=== PATIENT | male | born 1980 | race Caucasian/White ===

== ENCOUNTER 2018-07-27 11:59 | Inpatient (IN) | payer MEDICAID, OTHER ==
[2018-07-27 13:17] LABS: VENOUS BLOOD GAS BASE EXCESS 4.9 mmol/L (0.0-2.0); VENOUS BLOOD GAS PCO2 53 mmHg (40-60); VENOUS BLOOD GAS PO2 25 mm/Hg (30-55); VENOUS BLOOD PH 7.38 (7.32-7.43)
--- NOTE | 2018-07-27 13:21 | ED PDOC ---
HPI: Fever Time Seen by Provider: 07/27/18 12:52 Additional Comments: 38 years old male with history of diabetes presents to ER for evaluation of fever associated with swelling and redness to left lower extremity onset 2 days. Patient denies any trauma, chest pain or shortness of breath. PMD: Julianna Gutiérrez Past Medical History Reviewed: Historical Data, Nursing Documentation, Vital Signs Vital Signs: Last Vital Signs Temp 102.2 F H 07/27/18 12:37 Pulse 123 H 07/27/18 12:37 Resp 20 07/27/18 12:37 BP 127/73 07/27/18 12:37 Pulse Ox 96 07/27/18 12:37 - Medical History PMH: Diabetes, Hyperlipidemia - Surgical History Surgical History: No Surg Hx - Family History Family History: States: Unknown Family Hx - Social History Current smoker - smoking cessation education provided: Yes Alcohol: Social Drugs: Denies - Home Medications Home Medications: Ambulatory Orders Medication Instructions Recorded Docusate [Colace] 100 mg PO BID #30 cap 07/28/16 - Allergies Allergies/Adverse Reactions: Allergies Allergy/AdvReac Type Severity Reaction Status Date / Time No Known Allergies Allergy Verified 07/27/18 12:35 Review of Systems ROS Statement: Except As Marked, All Systems Reviewed And Found Negative Constitutional: Positive for: Fever Cardiovascular: Negative for: Chest Pain Respiratory: Negative for: Shortness of Breath Musculoskeletal: Positive for: Other (Swelling of left lower extremity) Physical Exam - Reviewed Nursing Documentation Reviewed: Yes Vital Signs Reviewed: Yes - Physical Exam Appears: Positive for: Non-toxic, No Acute Distress Head Exam: Positive for: ATRAUMATIC, NORMOCEPHALIC Cardiovascular/Chest: Positive for: Regular Rate, Rhythm. Negative for: Murmur Respiratory: Positive for: Normal Breath Sounds. Negative for: Wheezing Gastrointestinal/Abdominal: Positive for: Normal Exam, Soft. Negative for: Tenderness Extremity: Positive for: Normal ROM, Swelling (left lower warmth and erythema from ankle to knee laterally) Neurologic/Psych: Positive for: Alert, Oriented (x3) - ECG O2 Sat by Pulse Oximetry: 96 (RA) Pulse Ox Interpretation: Normal Medical Decision Making Medical Decision Making: Time: 1256 Initial Plan: --VBG --CMP --CBC --Tylenol 325 mg PO --Vancomycin Inj 1 gm IVPB --Blood culture --Left duplex lower extremity vein US Scribe Attestation: Documented by Lesia Nolan, acting as a scribe for Olievr Vickers MD. Provider Scribe Attestation: All medical record entries made by the Scribe were at my direction and personally dictated by me. I have reviewed the chart and agree that the record accurately reflects my personal performance of the history, physical exam, medical decision making, and the department course for this patient. I have also personally directed, reviewed, and agree with the discharge instructions and disposition. Disposition - Clinical Impression Clinical Impression: Cellulitis, Sepsis - Patient ED Disposition Is Patient to be Admitted: Yes - Disposition Disposition Time: 13:38 Condition: FAIR Forms: [employer] (Georgian) - Pt Status Changed To: Hospital Disposition Of: Inpatient - Admit Certification Admit to Inpatient:: After my assessment, the patient will require hospitalization for at least two midnights. This is because of the severity of symptoms shown, intensity of services needed, and/or the medical risk in this patient being treated as an outpatient. - POA Present On Arrival: None
[2018-07-27] MEDS ORDERED: Vancomycin 1 g Inj ONE (13:22)
[2018-07-27] MEDS ORDERED: Piperacillin/Tazobact 3.375 GM in Sodium Chloride 0.9% 100 ML IVPB STA (13:38)
--- NOTE | 2018-07-27 13:55 | US ---
Date of service: 07/27/2018 HISTORY: rednes and swelling left calf. PRIORS: None. FINDINGS: 2-D, color and duplex Doppler analysis of the lower extremity venous circulation using routine protocol from the femoral veins through the popliteal veins. Venous compressibility: Normal. Flow and augmentation patterns: Normal. Visualized veins upper third of calf: Normal. Yung cyst: None. IMPRESSION: No sonographic or Doppler evidence for DVT in left lower extremity.
[2018-07-27 14:02] LABS: BASO % 0.1 % (0.0-2.0); EOS % 0.2 % (0.0-4.0); HEMOGLOBIN 15.5 g/dL (12.0-18.0); LYMPH # 1.3 K/uL (1.0-4.3); LYMPH % 8.3 % (20.0-40.0); MEAN CELL VOLUME 89.3 fl (80.0-94.0); MEAN CORPUSCULAR HEMOGLOBIN 29.9 pg (27.0-31.0); MEAN CORPUSCULAR HGB CONC 33.5 g/dL (33.0-37.0); MEAN PLATELET VOLUME 10.8 fl (7.2-11.7); MONO # 0.8 K/uL (0.0-0.8); NEUT % 86.4 % (50.0-75.0); PLATELET COUNT 195 K/uL (130-400); RBC 5.18 Mil/uL (4.40-5.90); RED CELL DISTRIBUTION WIDTH 14.1 % (11.5-14.5); WHITE BLOOD COUNT 16.2 K/uL (4.8-10.8)
[2018-07-27 14:08] LABS: ALB/GLOB RATIO 1.1 (1.0-2.1); ALBUMIN 4.4 g/dL (3.5-5.0); ALT/SGPT 74 U/L (21-72); AST/SGOT 36 U/L (17-59); BLOOD UREA NITROGEN 10 mg/dl (9-20); CALCIUM 9.4 mg/dL (8.4-10.2); GFR NON-AFRICAN AMERICAN > 60
[2018-07-27 14:29] LABS: BANDS 1 % (0-2); LYMPHOCYTE 7 % (20-50); MONOCYTE 2 % (0-10); NEUTROPHIL 90 % (42-75); TOTAL CELLS COUNTED 100
[2018-07-27 14:30] LABS: PLATELET ESTIMATE NORMAL (NORMAL)
[2018-07-27 14:36] LABS: URINE BILIRUBIN NEGATIVE (NEGATIVE); URINE BLOOD NEGATIVE (NEGATIVE); URINE CLARITY SLIGHTY-CLOUDY (Clear); URINE COLOR YELLOW (YELLOW); URINE GLUCOSE (UA) NEG (Normal); URINE LEUKOCYTE ESTERASE NEG Leu/uL (Negative); URINE PROTEIN NEGATIVE (NEGATIVE); URINE UROBILINOGEN 0.2-1.0 mg/dL (0.2-1.0)
[2018-07-28] MEDS: Piperacillin/Tazobact 3.375 GM in Sodium Chloride 0.9% 100 ML IVPB SCH ×3 (00:24→16:30)
[2018-07-28] MEDS: Enoxaparin 40 mg Syringe SC SCH (09:27)
--- NOTE | 2018-07-28 09:34 | RAD ---
Date of service: 07/28/2018 HISTORY: sepsis COMPARISON: Left ribs with chest 07/03/2011. FINDINGS: LUNGS: No active pulmonary disease. PLEURA: No significant pleural effusion identified, no pneumothorax apparent. CARDIOVASCULAR: Normal. OSSEOUS STRUCTURES: No significant abnormalities. VISUALIZED UPPER ABDOMEN: Normal. OTHER FINDINGS: None. IMPRESSION: No interval acute cardiopulmonary disease appreciated.
--- NOTE | 2018-07-28 13:11 | CARD ---
APPROVED REPORT Date of service: 07/28/2018 EKG Measurement Heart [id number] <Conclusion> Normal sinus rhythm Inferior infarct, age undetermined Abnormal ECG
--- NOTE | 2018-07-28 18:04 | HP ---
CHIEF COMPLAINT: Redness of left lower extremity and fever. HISTORY OF PRESENT ILLNESS: This is a 38-year-old male known case of diabetes, elevated cholesterol, morbid obesity with fever and left lower extremity redness and swelling and pain. The patient was brought to emergency room and was admitted for further management. REVIEW OF SYSTEMS: Positive for generalized malaise, weakness, fatigue, tired, fever and left lower extremity pain. Review of systems otherwise is negative for headache, dizziness, syncope, loss of consciousness, chest pain, shortness of breath, nausea, vomiting, diarrhea, constipation. Review of systems of all other organ system is unremarkable. PAST MEDICAL HISTORY: Significant for diabetes, elevated cholesterol. PAST SURGICAL HISTORY: Unremarkable. PERSONAL HISTORY: The patient is currently a smoker, but no alcohol or substance abuse. MEDICATIONS: The patient is on Colace, glimepiride along with other medications, which are reviewed and reconciled. ALLERGIES: THE PATIENT IS NOT ALLERGIC TO ANY MEDICATIONS. FAMILY HISTORY: Noncontributory. PHYSICAL EXAMINATION: GENERAL: Well-built, well-nourished, grossly overweight, morbidly obese, 38-year-old male, in no acute distress. VITAL SIGNS: Temperature 99, pulse 88, respirations 20, blood pressure 106/90, saturation 92%. HEENT: Pupils reacting to light. No JVD. No thyromegaly. No lymphadenopathy. No nystagmus. Normocephalic. Atraumatic skull. HEART: S1 and S2. Normal and regular. No significant murmur, gallop or rub is heard. LUNG: Shows good bilateral air exchange. No rales or rhonchi. ABDOMEN: Soft, nontender. No organomegaly. No fluid. Bowel sounds are plus and normal. EXTREMITIES: No edema. No calf swelling. No tenderness. No acute ischemia on right side, but left lower extremity down to ankle. The patient has swelling, redness, and tenderness. No sign of distal neurovascular compromise. The patient has good peripheral pulse and good capillary refill. No calf swelling or tenderness. 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 DIAGNOSTIC DATA: Available diagnostic data reviewed. WBC 16.2, hemoglobin 15.5, hematocrit 46.2, platelets 195, lactic acid level of 1.9. Sodium 139, potassium 4.2, chloride 100, bicarb 32, BUN 10, creatinine 0.9. SMA-12 is unremarkable. Accu-Cheks are 137, 160, 114. Urinalysis is negative. Left lower extremity Doppler study is negative for blood clots. ADMITTING IMPRESSION: Septicemia, left lower extremity cellulitis, diabetes type 2 with hyperglycemia, elevated cholesterol, morbid obesity with body mass index of 39.1. PLAN: As ordered. Case and plan discussed with the patient and the patient's family at bedside at length. Jose Thomas MD
--- NOTE | 2018-07-28 22:20 | CON ---
DATE: 07/28/2018 ENDOCRINOLOGY CONSULTATION LOCATION: Room 426, ICU. HISTORY OF PRESENT ILLNESS: This is a 38-year-old male with known history of type 2 diabetes and hypertension, presenting here with left lower extremity cellulitis and is now being referred for diabetic evaluation and management. PAST MEDICAL HISTORY: As mentioned above, history of type 2 diabetes, currently on a combination of oral hypoglycemic therapy with Amaryl given as 1 mg daily and metformin as 1 g b.i.d. History of hypertension and dyslipidemia. FAMILY HISTORY: Positive for diabetes and hypertension. SOCIAL HISTORY: The patient has a supportive family. Admits to smoking half a pack a day for some years now. No other known substance use. REVIEW OF SYSTEMS: Admits to generalized body weakness with episodic bouts of dizziness and lightheadedness, worse on the day of admission. Also admits to bifrontal headaches and visual blurring with suboptimal energy level. No chest pains, palpitations, or PNDs. Oral intake is variable with nausea and dyspepsia and vague upper abdominal pains. Also admits to marked polyuria, nocturia, and polydipsia. PHYSICAL EXAMINATION: GENERAL: This is an average-built male, in no apparent distress. VITAL SIGNS: Blood pressure of 140/80, pulse of 70 beats per minute and regular, temperature 98, respirations 20. Height is 5 feet 11 inches. Weight is 280 pounds. HEENT: Head is normocephalic. Eyes, anicteric with pink conjunctivae. Funduscopy not possible at this time. Ears, nose, and throat otherwise normal. NECK: Supple. Thyroid gland is normal in size. No carotid bruits or any cervical adenopathy. CARDIOPULMONARY: Some adynamic precordium. S1 and S2 are rapid and regular. LUNGS: Clear to auscultation. ABDOMEN: Flat, soft with positive bowel sounds. EXTREMITIES: Left lower extremity shows flaccid erythema and edema in the left lower extremity. Pulses are +2 bilaterally. LABORATORY DATA: Chemistry: BUN of 10, sodium 139, potassium 4.2, chloride of 100, CO2 of 32, glucose 114 and creatinine 0.9. WBC is 16.2 with a hemoglobin of 15, hematocrit of 46, MCV 89, platelets 15. ASSESSMENT: This is a 38-year-old male with uncontrolled and decompensated type 2 diabetes, presenting here with acute cellulitis in the lower extremity with concomitant fever and leukocytosis and is now being referred for diabetic evaluation and management. PLAN OF MANAGEMENT: We will continue the current oral hypoglycemic therapy given as 1000 mg b.i.d. with glipizide given as 5 mg b.i.d. before meals as ordered. We will titrate incrementally as indicated to optimize metabolic control. We will also continue the same dose dual oral hypoglycemic therapy as given with metformin given as 1 g b.i.d. and glipizide as 5 mg b.i.d. as ordered. We will obtain serial chemistries and continue the vigorous IV hydration as given. We will obtain serial chemistries and supplement accordingly as needed. We will follow. Sandrine Jean MD
[2018-07-29] MEDS: Piperacillin/Tazobact 3.375 GM in Sodium Chloride 0.9% 100 ML IVPB SCH ×3 (00:25→17:46)
[2018-07-29] MEDS: Enoxaparin 40 mg Syringe SC SCH (09:13)
--- NOTE | 2018-07-29 13:38 | CP.PCM.PN ---
Subjective - Date & Time of Evaluation Date of Evaluation: 07/29/18 Time of Evaluation: 07:20 - Subjective Subjective: Patient seen and examined with Dr. Thomas this AM. Report leg pain has improved. Denies any fever, chills, nausea, vomiting, chest pain or dyspnea. Objective - Vital Signs/Intake and Output Vital Signs (last 24 hours): Temp Pulse Resp BP Pulse Ox 98 F 93 H 18 126/94 H 95 07/29/18 12:50 07/29/18 12:50 07/29/18 12:50 07/29/18 12:50 07/29/18 12:50 - Medications Medications: Current Medications Atorvastatin Calcium (Lipitor) 20 mg PO DAILY [facility] Last Admin: 07/29/18 09:13 Dose: 20 mg Enoxaparin Sodium (Lovenox) 40 mg SC DAILY [facility]; Protocol Last Admin: 07/29/18 09:13 Dose: 40 mg Glipizide (Glucotrol) 5 mg PO BID [facility] Last Admin: 07/29/18 09:13 Dose: 5 mg Piperacillin Sod/Tazobactam (Sod 3.375 gm/ Sodium Chloride) 100 mls @ 100 mls/hr IVPB Q8 [facility]; Protocol Last Admin: 07/29/18 08:20 Dose: 100 mls/hr Vancomycin HCl 1 gm/ Sodium (Chloride) 250 mls @ 166.667 mls/hr IVPB Q12@0500,1700 [facility]; Protocol Last Admin: 07/29/18 05:20 Dose: 166.667 mls/hr Metformin HCl (Glucophage) 1,000 mg PO BIDWM [facility] Last Admin: 07/29/18 09:14 Dose: 1,000 mg - Labs Labs: 07/27/18 13:20 07/27/18 13:20 - Constitutional Appears: Non-toxic, No Acute Distress - Head Exam Head Exam: ATRAUMATIC, NORMAL INSPECTION - Eye Exam Eye Exam: Normal appearance - ENT Exam ENT Exam: Mucous Membranes Moist - Neck Exam Neck Exam: Full ROM, Normal Inspection - Respiratory Exam Respiratory Exam: Clear to Ausculation Bilateral, NORMAL BREATHING PATTERN. absent: Rhonchi, Wheezes - Cardiovascular Exam Cardiovascular Exam: REGULAR RHYTHM, +S1, +S2 - GI/Abdominal Exam GI & Abdominal Exam: Soft, Normal Bowel Sounds. absent: Tenderness - Extremities Exam Extremities Exam: absent: Calf Tenderness Additional comments: Mild erythema and warmth on left lower leg (improved) - Neurological Exam Neurological Exam: Alert, Awake, Oriented x3 - Psychiatric Exam Psychiatric exam: Normal Affect, Normal Mood - Skin Skin Exam: Normal Color Assessment and Plan - Assessment and Plan (Free Text) Assessment: 38 yo male pmhx DMII, HLD admited for left lower leg cellulitis and possible sepsis. Plan: c/w IV Vancomycin and Zosyn c/w home medications blood cx: no growth after 24 hours Urine cx: no growth. f/u MRI. If MRI is unremarkable, anticipate discharge this afternoon. Patient seen,examined and plan d/w Dr. Martha Woods, pgy-2
[2018-07-29] MEDS ORDERED: Gadodiamide 287 MG/ML VIAL (15ML) IV ONE (14:52)
--- NOTE | 2018-07-29 16:00 | PN ---
DATE: 07/29/2018 ENDO FOLLOWUP NOTE LOCATION: In ICU room 426. SUBJECTIVE: This is a 38-year-old male with recent uncontrolled type 2 diabetes, presenting here with lower extremity cellulitis and unsuccessful with IV antibiotic management and is also being followed closely for metabolic management. His glycemic levels are fluctuating, but improved and the glucose levels have ranged from 91 to 94 mg/dL. This was 144 early this morning as noted. His hemoglobin A1c is 6.9%. ASSESSMENT AND PLAN: So at this time, we will continue the same dual oral hypoglycemic therapy as given with glipizide given as 5 mg b.i.d. and metformin given as 1 g b.i.d. with meals as ordered. We will titrate incrementally as indicated to optimize metabolic control. We will follow and advise accordingly. Sandrine Jean MD
--- NOTE | 2018-07-29 16:31 | MRI ---
MRI left tibia and fibula History: Cellulitis. Evaluate for osteomyelitis. Comparison: None available. TECHNIQUE: Multi-echo multiplanar sequences were performed through the left tibia and fibula without and with the use of intravenous contrast. Findings: Prominent reticulation and edema within anterior and medial subcutaneous soft tissues at the level of the left tibia and fibula consistent with cellulitis. This is seen throughout the entire extent of the left tibia and fibula. The edema extends and abuts the anteromedial cortex of the tibia throughout its course. No gross signal abnormality noted within the tibia to suggest for an acute osteomyelitis. Correlation with plain x-ray would be helpful to exclude possible and or subtle periosteal changes. Clinical correlation. Minimal reactive edema seen within medial and lateral heads of the gastrocnemius muscles which may represent myositis. Remainder of the visualized musculature appears preserved. Limited evaluation of the right tibia and fibula demonstrates prominent cortical thickening and/or productive change at the level of the mid to distal medullary cavity of the right tibia which may represent a chronic deformity given the lack of reactive edema. Correlation plain x-ray and or clinical correlation maybe helpful for further evaluation if clinically indicated. Impression: 1. Prominent reticulation and edema within anterior and medial subcutaneous soft tissues at the level of the left tibia and fibula consistent with cellulitis. This is seen throughout the entire extent of the left tibia and fibula. The edema extends and abuts the anteromedial cortex of the tibia throughout its course. No gross signal abnormality noted within the tibia to suggest for an acute osteomyelitis. Correlation with plain x-ray would be helpful to exclude possible and or subtle periosteal changes. Clinical correlation. 2. Minimal reactive edema seen within medial and lateral heads of the gastrocnemius muscles which may represent myositis. Remainder of the visualized musculature appears preserved. 3. Limited evaluation of the right tibia and fibula demonstrates prominent cortical thickening and/or productive change at the level of the mid to distal medullary cavity of the right tibia which may represent a chronic deformity given the lack of reactive edema. Correlation plain x-ray and or clinical correlation maybe helpful for further evaluation if clinically indicated.
[2018-07-30] MEDS: Piperacillin/Tazobact 3.375 GM in Sodium Chloride 0.9% 100 ML IVPB SCH ×2 (01:43→08:40)
[2018-07-30 02:19] VITALS: O2SAT 97
[2018-07-30 08:23] LABS: HEMOGLOBIN 15.2 g/dL (12.0-18.0); MEAN CELL VOLUME 88.8 fl (80.0-94.0); MEAN CORPUSCULAR HEMOGLOBIN 30.2 pg (27.0-31.0); RBC 5.03 Mil/uL (4.40-5.90); RED CELL DISTRIBUTION WIDTH 13.8 % (11.5-14.5); WHITE BLOOD COUNT 9.7 K/uL (4.8-10.8)
[2018-07-30 08:38] VITALS: BP 127/78; RESP 20; TEMP 98.2
[2018-07-30] MEDS: Enoxaparin 40 mg Syringe SC SCH (08:40)
[2018-07-30 09:26] LABS: BLOOD UREA NITROGEN 14 mg/dl (9-20)
[2018-07-30 09:27] LABS: CALCIUM 9.2 mg/dL (8.4-10.2); GFR NON-AFRICAN AMERICAN > 60
--- NOTE | 2018-07-30 09:52 | CP.PCM.DIS ---
Provider - Provider Date of Admission: 07/27/18 13:36 Attending physician: Jose Thomas MD Time Spent in preparation of Discharge (in minutes): 25 Diagnosis - Discharge Diagnosis (1) Cellulitis Status: Acute (2) Sepsis Status: Resolved Hospital Course - Lab Results Lab Results: Micro Results 07/27/18 11:13 Naris MRSA Culture (Admit) - Final MRSA NOT DETECTED 07/27/18 14:00 Blood Blood Culture - Preliminary NO GROWTH AFTER 48 HOURS 07/27/18 13:00 Blood Blood Culture - Preliminary NO GROWTH AFTER 48 HOURS 07/27/18 14:10 Urine Urine Culture - Final No Growth (<1,000 CFU/ML) Most Recent Lab Values WBC 9.7 K/uL (4.8-10.8) 07/30/18 08:15 RBC 5.03 Mil/uL (4.40-5.90) 07/30/18 08:15 Hgb 15.2 g/dL (12.0-18.0) 07/30/18 08:15 Hct 44.7 % (35.0-51.0) 07/30/18 08:15 MCV 88.8 fl (80.0-94.0) 07/30/18 08:15 MCH 30.2 pg (27.0-31.0) 07/30/18 08:15 MCHC 34.0 g/dL (33.0-37.0) 07/30/18 08:15 RDW 13.8 % (11.5-14.5) 07/30/18 08:15 Plt Count 208 K/uL (130-400) 07/30/18 08:15 MPV 10.8 fl (7.2-11.7) 07/27/18 13:20 Neut % (Auto) 86.4 % (50.0-75.0) H 07/27/18 13:20 Lymph % (Auto) 8.3 % (20.0-40.0) L 07/27/18 13:20 [place] % (Auto) 5.0 % (0.0-10.0) 07/27/18 13:20 Eos % (Auto) 0.2 % (0.0-4.0) 07/27/18 13:20 Baso % (Auto) 0.1 % (0.0-2.0) 07/27/18 13:20 Neut # (Auto) 14.0 K/uL (1.8-7.0) H 07/27/18 13:20 Lymph # (Auto) 1.3 K/uL (1.0-4.3) 07/27/18 13:20 [place] # (Auto) 0.8 K/uL (0.0-0.8) 07/27/18 13:20 Eos # (Auto) 0.0 K/uL (0.0-0.7) 07/27/18 13:20 Baso # (Auto) 0.0 K/uL (0.0-0.2) 07/27/18 13:20 Neutrophils % (Manual) 90 % (42-75) H 07/27/18 13:20 Band Neutrophils % 1 % (0-2) 07/27/18 13:20 Lymphocytes % (Manual) 7 % (20-50) L 07/27/18 13:20 Monocytes % (Manual) 2 % (0-10) 07/27/18 13:20 Platelet Estimate Normal (NORMAL) 07/27/18 13:20 RBC Morphology Normal (NORMAL) 07/27/18 13:20 pO2 25 mm/Hg (30-55) L 07/27/18 13:12 VBG pH 7.38 (7.32-7.43) 07/27/18 13:12 VBG pCO2 53 mmHg (40-60) 07/27/18 13:12 VBG HCO3 27.3 mmol/L 07/27/18 13:12 VBG Total CO2 33.0 mmol/L (22-28) H 07/27/18 13:12 VBG O2 Sat (Calc) 48.1 % (40-65) 07/27/18 13:12 VBG Base Excess 4.9 mmol/L (0.0-2.0) H 07/27/18 13:12 VBG Potassium 4.1 mmol/L (3.6-5.2) 07/27/18 13:12 Sodium 135.0 mmol/L (132-148) 07/27/18 13:12 Chloride 97.0 mmol/L (98-107) L 07/27/18 13:12 Glucose 118 mg/dL (75-110) H 07/27/18 13:12 Lactate 1.9 mmol/L (0.7-2.1) 07/27/18 13:12 FiO2 21.0 % 07/27/18 13:12 Sodium 137 mmol/l (132-148) 07/30/18 08:15 Potassium 4.4 MMOL/L (3.6-5.0) 07/30/18 08:15 Chloride 101 mmol/L (98-107) 07/30/18 08:15 Carbon Dioxide 27 mmol/L (22-30) 07/30/18 08:15 Anion Gap 13 (10-20) 07/30/18 08:15 BUN 14 mg/dl (9-20) 07/30/18 08:15 Creatinine 0.9 mg/dl (0.8-1.5) 07/30/18 08:15 Est GFR ( Amer) > 60 07/30/18 08:15 Est GFR (Non-Af Amer) > 60 07/30/18 08:15 POC Glucose (mg/dL) 119 mg/dL (65-110) H 07/30/18 05:20 Random Glucose 146 mg/dL (75-110) H 07/30/18 08:15 Hemoglobin A1c 6.9 % (4.2-6.5) H 07/28/18 08:30 Calcium 9.2 mg/dL (8.4-10.2) 07/30/18 08:15 Total Bilirubin 0.7 mg/dl (0.2-1.3) 07/27/18 13:20 AST 36 U/L (17-59) 07/27/18 13:20 ALT 74 U/L (21-72) H D 07/27/18 13:20 Alkaline Phosphatase 78 U/L (38-126) 07/27/18 13:20 Total Protein 8.6 G/DL (6.3-8.2) H 07/27/18 13:20 Albumin 4.4 g/dL (3.5-5.0) 07/27/18 13:20 Globulin 4.2 gm/dL (2.2-3.9) H 07/27/18 13:20 Albumin/Globulin Ratio 1.1 (1.0-2.1) 07/27/18 13:20 Triglycerides 213 mg/DL (0-149) H 07/29/18 04:20 Cholesterol 185 mg/dL (0-199) 07/29/18 04:20 LDL Cholesterol Direct 101 mg/dL (0-129) 07/29/18 04:20 HDL Cholesterol 38 MG/DL (30-70) 07/29/18 04:20 TSH 3rd Generation 1.83 mIU/ML (0.46-4.68) 07/29/18 04:20 Venous Blood Potassium 4.1 mmol/L (3.6-5.2) 07/27/18 13:12 Urine Color Yellow (YELLOW) 07/27/18 14:10 Urine Clarity Slighty-cloudy (Clear) 07/27/18 14:10 Urine pH 7.0 (5.0-8.0) 07/27/18 14:10 Ur Specific [place] 1.020 (1.003-1.030) 07/27/18 14:10 Urine Protein Negative mg/dL (NEGATIVE) 07/27/18 14:10 Urine Glucose (UA) Neg mg/dL (Normal) 07/27/18 14:10 Urine Ketones Negative mg/dL (NEGATIVE) 07/27/18 14:10 Urine Blood Negative (NEGATIVE) 07/27/18 14:10 Urine Nitrate Negative (NEGATIVE) 07/27/18 14:10 Urine Bilirubin Negative (NEGATIVE) 07/27/18 14:10 Urine Urobilinogen 0.2-1.0 mg/dL (0.2-1.0) 07/27/18 14:10 Ur Leukocyte Esterase Neg [place]/uL (Negative) 07/27/18 14:10 Urine RBC (Auto) 2 /hpf (0-3) 07/27/18 14:10 Urine Microscopic WBC < 1 /hpf (0-5) 07/27/18 14:10 - Hospital Course Hospital Course: 38 yo male pmhx DMII, HLD, obesity presented to [facility] ED with c/o left lower extremity pain, swelling, erythema and fever for 2 days. Patient was admitted on 07/27/18 for left lower leg cellulitis and suspected sepsis. Patient received vacomycin and zosyn during the admission. Extermity US was negative for DVT and MRI of the left leg was negative for osteomyelitis. Patient has been afebrile for last 2 days with stable vitals. Blood cx and urine cx showed no growth so far. Patient is hemodynamically stable to discharge home with Augmentin po bid x 14 days. Advised to f/u with PMD in 2-3 days. Discharge Exam - Head Exam Head Exam: ATRAUMATIC, NORMAL INSPECTION - Eye Exam Eye Exam: EOMI, Normal appearance - ENT Exam ENT Exam: Mucous Membranes Moist - Respiratory Exam Respiratory Exam: Clear to PA & Lateral, NORMAL BREATHING PATTERN. absent: Wheezes, Respiratory Distress - Cardiovascular Exam Cardiovascular Exam: REGULAR RHYTHM, RRR, +S1, +S2 - GI/Abdominal Exam GI & Abdominal Exam: Normal Bowel Sounds, Soft. absent: Tenderness - Extremities Exam Additional comments: Minimal erythema and warth of the left lower extremity, significantly improved. No calf tenderness. - Neurological Exam Neurological exam: Alert, Oriented x3 - Psychiatric Exam Psychiatric exam: Normal Affect, Normal Mood - Skin Skin Exam: Normal Color, Warm Discharge Plan - Discharge Medications Prescriptions: Amoxicillin/Clavulanate [Augmentin 875 MG-125 MG] 1 tab PO BID #28 tab - Follow Up Plan Condition: FAIR Disposition: HOME/ ROUTINE Instructions: Cellulitis (DC), Cellulitis (GEN) Additional Instructions: Please follow up with your PMD in 2-3 days. Referrals: Julianna Gutiérrez MD [Medical Doctor] -
[2018-07-30 10:28] VITALS: PULSE 80
--- NOTE | 2018-07-30 14:11 | PN ---
DATE: 07/30/2018 ENDO FOLLOWUP NOTE LOCATION: ICU room 426. SUBJECTIVE: This is a 38-year-old male with recent admission for left lower extremity cellulitis and is now being followed closely for metabolic management. His glycemic levels are fluctuating but much improved at this time and the glucose values have ranged from 62 to 119 mg/dL. LABORATORY DATA: His latest chemistry showed a BUN of 14, sodium 137, potassium 4.4, chloride 101, CO2 of 27, glucose 146, and creatinine 0.9. ASSESSMENT AND PLAN: So at this time, we will continue the present medical management with metformin given as 1 g b.i.d. and glipizide given as 5 mg b.i.d. before meals as ordered. We will titrate incrementally as indicated to optimize metabolic control. We will follow and advise accordingly. Sandrine Jean MD
== END 2018-07-30 11:28 | disposition home or self-care (01) | DRG 872 ==
LOC: H.ER 11:59 → H.ERHOLD 13:36 → H.ICU/CCU 21:37
PROVIDERS: ADMIT Internal Medicine; ATTEND Internal Medicine
DX: A41.9 Sepsis, unspecified organism (principal); L03.116 Cellulitis of left lower limb; E66.01 Morbid (severe) obesity due to excess calories; Z68.39 Body mass index [BMI] 39.0-39.9, adult; E78.5 Hyperlipidemia, unspecified; E11.65 Type 2 diabetes mellitus with hyperglycemia; E78.00 Pure hypercholesterolemia, unspecified; F17.210 Nicotine dependence, cigarettes, uncomplicated; I10 Essential (primary) hypertension